=== PATIENT | female | born 1975 | race Two or more races ===

== ENCOUNTER 2020-07-05 08:23 | Day surgery (SDC) | payer BC ==
[~2020-07-05] VITALS: Ht 167.6 cm; Wt 143.2 kg
[~2020-07-05 08:23] MED LIST: ALBU1AER4 IN; ASPI-543 PO; ATOR20TA50 PO
[2020-07-05] MEDS ORDERED: IOHEXOL 350 MG/ML 100ML IJ ONE ×2 (10:20→10:24)
[2020-07-05] MEDS ORDERED: LIDOCAINE 2%HCL (LOCAL ANESTH.) INJ 20ML MDV ONE (10:20)
[2020-07-05] MEDS ORDERED: VERAPAMIL 2.5MG/ML INJ 2ML VIAL IV ONE (10:23)
[2020-07-05] MEDS ORDERED: MIDAZOLAM HCL 1MG/1ML-2 ML VIAL ONE (10:23)
[2020-07-05] MEDS ORDERED: fentaNYL CITRATE 100 MCG/2 ML VL ONE (10:23)
[2020-07-05] MEDS ORDERED: HEPARIN SODIUM (PORCINE) 5000 UNITS/ML 1ML VIAL ONE (10:23)
[2020-07-05] MEDS ORDERED: ANGIOMAX 250 MG VIAL IV ONE (10:23)
[2020-07-05] MEDS ORDERED: SODIUM CHL 0.9% 0 ML ONE (10:24)
[2020-07-05] MEDS ORDERED: ACETAMINOPHEN 500 MG TAB PO PRN (11:30)
[2020-07-05] MEDS ORDERED: HYDROcodone-ACET 5/325MG TAB PO PRN (11:30)
[2020-07-05] MEDS ORDERED: ONDANSETRON HCL 4 MG/2 ML VIAL IV PRN (11:30)
== END 2020-07-05 13:53 | disposition home or self-care (01) ==
LOC: CATH 08:23
PROVIDERS: ATTEND Internal Medicine Cardiovascular Disease
DX: R06.02 Shortness of breath (principal); E78.5 Hyperlipidemia, unspecified; I25.2 Old myocardial infarction; J45.909 Unspecified asthma, uncomplicated; I73.9 Peripheral vascular disease, unspecified; Z79.82 Long term (current) use of aspirin; Z79.899 Other long term (current) drug therapy; Z20.828 Contact with and (suspected) exposure to other viral communicable diseases; Z98.890 Other specified postprocedural states
CPT/HCPCS: 93458; C1769; C1887; C1894; J1644; J2250; J3010; Q9967; U0003; 99152